=== PATIENT | male | born 1965 | race Two or more races ===

== ENCOUNTER 2018-06-23 08:31 | Outpatient (CLI) | payer OTHER | END 2018-06-23 09:04 | disposition home or self-care (01) | LOC: RAD 501 08:31 | DX: M25.522 Pain in left elbow (principal) ==

== ENCOUNTER 2018-09-10 08:51 | Outpatient (CLI) | payer OTHER | END 2018-09-10 09:00 | disposition home or self-care (01) | LOC: RAD 501 08:51 | DX: M79.645 Pain in left finger(s) (principal) ==

== ENCOUNTER 2024-02-25 09:40 | Outpatient (CLI) | payer OTHER | END 2024-02-25 09:53 | disposition home or self-care (01) | LOC: RAD 09:40 | PROVIDERS: ATTEND Urology | DX: R31.1 Benign essential microscopic hematuria (principal) ==